=== PATIENT | female | born 2000 | race Caucasian/White ===

== ENCOUNTER 2024-02-17 11:18 | Emergency (ER) | payer BC, SELFPAY ==
[2024-02-17 11:20] VITALS: BP 122/77
[2024-02-17 11:52] VITALS: BMI 23.1
[2024-02-17 12:00] VITALS: BP 118/71
--- NOTE | 2024-02-17 12:05 | ED.GENMED ---
History of Present Illness
General
Chief Complaint: Abdominal Pain
Source: patient
Time Seen by Provider: 02/17/24 11:46
History of Present Illness
History of Present Illness:
23yoF with a history of endometriosis presenting via EMS for evaluation of abdominal pain. Patient reports lower abdominal/pelvic pain over the past week which is worse in the LLQ. Pain radiates to the lower back and upper thighs. Pain feels similar
to her pain from endometriosis. Pain is not improved with OTC medications. She also reports a nausea and a migraine due to the pain. She was at work today and she had a near syncopal episode at which point EMS was activated. Patient had a small
amount of vaginal bleeding yesterday but denies any bleeding today. LMP was 2 weeks ago. She denies any fevers, dysuria, vaginal bleeding. She follows with [facility], Dr. Karolyn Dick. She spoke with her OBGYN yesterday and they are planning a
surgery to 'remove scar tissue' from her endometriosis. She is currently maintained on oral contraceptives.
Phy Exam
General Physical Exam
General Presentation: well appearing and no apparent distress
General age: appears stated age
General Skin: warm and dry
General Habitus: normal
General Mental: alert
General Hydration: appears well hydrated
ENT Exam
ENT Exam: normocephalic
Cardiovascular Exam
Cardiovascular Exam: regular rate/rhythm and no murmur
Pulmonary Exam
Pulmonary Exam: lungs clear, no respiratory distress, no rales, no crackles, no rhonchi and no wheezing
Gastrointestinal Exam
Gastrointestinal Exam: soft, non distended and other (+Mild tenderness in LLQ. Abdomen soft, non-distended. No rebound or guarding.)
Neurological Exam
Neurological Exam: alert
[place] Coma Scale
Eye Opening: Spontaneous
Verbal Response: Oriented
Motor Response: Obeys Commands
GCS Total Score: 15
Skin Exam
Skin Exam: normal color and warm/dry
Psychiatric Exam
Psychiatric Exam: normal mood/affect
Course
Orders/Labs/Results
Orders:
Orders
02/17/24 12:05
Electrocardiogram (*1) Urgent
Reason for Study: Vertigo / Dizzy
EKG- Treatment ONCE
0.9% Sodium Chloride 1000 ml [Nss] 1,000 ml IV BOLUS
Ketorolac [Toradol] 15 mg IV NOW STA
Test Result ONCE
Pelvis & Transvaginal US [US Pelvis W Transvag Combined] Urgent
Comment:
Reason For Exam: Pelvic/LLQ pain
02/17/24 12:22
Complete Blood Count/With Diff Urgent
Comprehensive Metabolic Panel Urgent
HCG, Serum Qualitative Screen Urgent
Lipase Urgent
02/17/24 12:26
Urinalysis Reflex To Culture Urgent
Date Specimen was Collected: 02/17/24
Time Specimen was Collected: 12:23
Abnormal Lab Results
02/17/24
12:22
Monocytes % 10.1 H %
(1.7-9.3)
02/17/24 12:22
02/17/24 12:22
Vital Signs
Initial and Last Documented VS:
Initial Vital Signs
Temp Pulse Resp BP Pulse Ox
97.5 F 76 16 122/77 97
02/17/24 11:20 02/17/24 11:20 02/17/24 11:20 02/17/24 11:20 02/17/24 11:20
Last Documented Vital Signs
Temp Pulse Resp BP Pulse Ox
97.5 F 67 18 115/77 97
02/17/24 11:20 02/17/24 16:06 02/17/24 16:06 02/17/24 15:00 02/17/24 15:45
MDM/Problems Addressed
Differential Diagnosis Includes:
23yoF here with lower abd/pelvic pain x 1 week. Worse in LLQ. Feels similar to endometriosis pain. Had a near syncopal episode this afternoon due to the pain. VSS. She is well appearing in no distress. Exam is reassuring. Differential diagnosis
includes but is not limited to: endometriosis, ovarian cyst, UTI, dehydration
Initial ED plan: Check abdominal labs, HCG, UA, EKG, and pelvic ultrasound. IV Toradol for pain.
*EKG
Interpreted by ED Provider?: Yes
EKG Intrepretation Date: 02/17/24
Heart Rate: 55
Rate: bradycardiac
Rhythm: sinus
Early: normal axis
Interval: normal interval
QRS Pattern: normal QRS
Ischemia: no ischemia
*Critical Care Note
Total Time (30-74mins, 75-104mins- exclusive of procedures): Not Applicable
Update Note
Update Note:
Labs overall unremarkable including normal hemoglobin, renal function, LFTs, lipase. EKG shows sinus bradycardia without ischemic changes or ectopy. She has a documented history of prolonged QT although QTc is 417 on EKG today. UA bland without
signs of infection. TVUS is negative for acute findings. No indication for admission. Patient has been in contact with her OBGYN and they are planning a laparoscopy. She was advised to f/u with OBGYN and ED return precautions discussed. She
expressed understanding and is agreement with plan. She was discharged in stable condition.
ED Attending Note
-
Portions of this chart may have been created with voice recognition software.� Occasional wrong word or��sound alike� substitutions may have occurred due to the inherent limitations of voice recognition software.
Discharge Plan
Departure
Patient Disposition: Home (Routine Discharge)
Date of Disposition: 02/17/24
Time of Disposition: 16:01
Patient with high blood pressure during this ER visit?: No
Discharge Problem:
Pelvic pain, Near syncope
Instructions: Pelvic Pain (DC)
Prescriptions:
No Action
sertraline 25 mg tablet
25 mg PO DAILY
multivitamin Tablet
1 tab PO DAILY
Referrals:
Macarena Nagel MD [Family Provider] -
Activity Restrictions/Additional Instructions:
Apply heating pad to affected area. Take Tylenol and ibuprofen as needed for pain.
Please follow-up with your OBGYN on Tuesday. Return to the ER with any new or worsening symptoms.
Interventions
Interventions:
*Risk Screen - Suicide Last Done: 02/17/24 11:20
*General Assessment Last Done: 02/17/24 11:20
*Neglect/Abuse Screening Last Done: 02/17/24 11:20
ED- Fall Risk Assessment Last Done: 02/17/24 11:56
*ED COVID-19 Vaccine History Last Done: 02/17/24 11:52
*Nursing Disposition Last Done: 02/17/24 16:13
JT-Luuytt-Ajrkwuvbde Assessment Last Done: 02/17/24 11:55
Discharge Date and Time
Discharge Date/Time: 02/17/24 16:16
Print Language: STATELESS
[2024-02-17] MEDS: NSS 1000 IV (12:24)
[2024-02-17] MEDS: TORADOL 15 MG IV (12:24)
[2024-02-17 12:36] LABS: Urine Albumin Negative (Neg - Trace); Urine Bilirubin Negative (Negative); Urine Character Clear (Clear); Urine Color Yellow; Urine Glucose Negative (Negative); Urine Ketone Negative (Negative); Urine Leukocyte Negative (Negative); Urine Nitrite Negative (Negative); Urine Occult Blood Negative (Negative); Urine Urobilinogen Negative (Neg - 1+)
[2024-02-17 12:39] LABS: % Basophils 0.4 % (0-2); % Eosinophils 0.8 % (0-6); % Immature Granulocytes 0.2 % (0-0.5); % Lymphocytes 26.8 % (20.5-51.1); % Monocytes 10.1 % (1.7-9.3); % Neutrophils 61.7 % (42.2-75.2); Absolute Lymphocytes 1.3 10^3/uL (1.2-3.4); Absolute Monocytes 0.5 10^3/uL (0.1-0.6); Hematocrit 42.9 % (37.0-47.0); Hemoglobin 14.4 g/dL (12.0-16.0); Mean Corp Hgb Conc. 33.6 g/dL (33.0-37.0); Mean Corpuscular Hgb 28.5 pg (27.0-31.0); Mean Corpuscular Volume 84.8 fL (81.0-99.0); Mean Platelet Volume 9.8 fL (7.4-10.4); Nucleated Red Blood Cells % 0 %; Platelet Count 316 10^3/uL (130-400); Red Blood Cell Count 5.06 10^6/uL (4.20-5.40); Red Cell Dist. Width 12.3 % (11.5-14.5); White Blood Cell Count 4.9 10^3/uL (4.8-10.8)
[2024-02-17 12:46] LABS: HCG, Serum Qualitative Screen Negative
[2024-02-17 12:51] LABS: ALT (SGPT) 17 U/L (0-35); AST (SGOT) 25 U/L (14-36); Albumin 4.4 g/dl (3.5-5.0); Alkaline Phosphatase 55 U/L (38-126); Blood Urea Nitrogen 9 mg/dl (7-17); Calcium 9.5 mg/dl (8.4-10.2); Carbon Dioxide 23 mmol/L (22-30); Chloride 105 mmol/L (98-107); Estimated Creatinine Clearance > 125 ml/min; Glucose 89 mg/dl (70-99); Potassium 4.2 mmol/L (3.5-5.1); Sodium 142 mmol/L (135-145); Total Bilirubin 0.4 mg/dl (0.2-1.3); Total Protein 7.2 g/dl (6.3-8.2); eGFR > 60.00
[2024-02-17 13:00] VITALS: BP 124/83
[2024-02-17 13:14] LABS: Lipase 80 U/L (23-300)
[2024-02-17 14:31] VITALS: BP 123/80
[2024-02-17 15:00] VITALS: BP 115/77
== END 2024-02-17 16:16 | disposition home or self-care (01) ==
LOC: EMR 11:18
PROVIDERS: Physician Assistant; EMERGENCY PHYSICIAN Emergency Medicine; FAMILY PHYSICIAN Internal Medicine
DX: R10.2 Pelvic and perineal pain (principal); R55 Syncope and collapse; N80.9 Endometriosis, unspecified
CPT/HCPCS: 99284; 96374; 96361; 76830; 76856; 80053; 81003; 83690; 84703; 85025; 93005